=== PATIENT | female | born 1980 | race Caucasian/White ===

== ENCOUNTER 2017-02-09 17:27 | Emergency (ER) | payer SELFPAY ==
[~2017-02-09] VITALS: Ht 157.5 cm; Wt 100.0 kg
[2017-02-09] MEDS ORDERED: METHOCARBAMOL 500MG TABLET PO ONE (19:30)
[2017-02-09] MEDS ORDERED: ACETAMINOPHEN WITH CODEINE 300/30MG TABLET PO ONE (19:30)
[2017-02-09] MEDS ORDERED: KETOROLAC 60MG/2ML VIAL IM ONE (19:30)
[2017-02-09 20:11] VITALS: BP 137/76
== END 2017-02-09 22:31 | disposition home or self-care (01) ==
LOC: ER 19:08
DX: S43.401A Unspecified sprain of right shoulder joint, initial encounter (principal); S13.9XXA Sprain of joints and ligaments of unspecified parts of neck, initial encounter; S29.9XXA Unspecified injury of thorax, initial encounter; M25.552 Pain in left hip; I10 Essential (primary) hypertension; V47.0XXA Car driver injured in collision with fixed or stationary object in nontraffic accident, initial encounter; Y93.89 Activity, other specified; Y92.411 Interstate highway as the place of occurrence of the external cause
CPT/HCPCS: 71111; 72040; 73030; 73502; 81025; 96372; 99284; J1885; J7030; Z7610

== ENCOUNTER 2018-04-23 17:48 | Emergency (ER) | payer SELFPAY ==
[~2018-04-23] VITALS: Ht 157.5 cm; Wt 95.0 kg
[2018-04-23 18:19] VITALS: BP 172/104
== END 2018-04-24 00:39 | disposition left against medical advice (07) ==
LOC: ER 17:48
DX: R10.9 Unspecified abdominal pain (principal); Z53.21 Procedure and treatment not carried out due to patient leaving prior to being seen by health care provider